=== PATIENT | female | born 1960 | race Caucasian/White ===

== ENCOUNTER 2024-05-31 16:59 | Observation (INO) | payer OTHER, SELFPAY ==
[2024-05-31 10:06] VITALS: BP 158/86
--- NOTE | 2024-05-31 10:42 | ED.GENMED ---
History of Present Illness
General
Chief Complaint: Back Pain
Source: patient
Exam Limitations: none
Time Seen by Provider: 05/31/24 10:20
Nursing documentation reviewed up to this point in time: agreed with
History of Present Illness
History of Present Illness:
63-year-old female with a history of hypertension, high cholesterol, [id number] diabetes presents for right sided back pain That radiates to her right flank which is very positional and worse with movement. She says just lying here
currently it is 9 out of 10 and is 10 out of 10 with movement. She has never had back pain like this before. She had no injuries. This has been going on a couple of days. She went to [place] yesterday and had labs and a urine and a CAT scan.
Her white count was normal at 6.4, her urine is small blood, small leuks, 6-10 whites, 6-10 reds, 16-20 epithelial cells and bacteria was present but negative nitrate, her chemistry panel was unremarkable. Her CAT scan was without contrast and
shows questionable mild thickening of the right lower quadrant small bowel loops which could be possibly enteritis, she had her cecum is in the left lower quadrant which she was aware of, she had an appendectomy which was left-sided years ago.
Patient does have a nonobstructing renal calculus in the left kidney measuring 6 mm.
She is not having any dysuria, urinary frequency or urgency, diarrhea, fever or chills. She is a little bit nauseous. She tried cyclobenzaprine 3 doses total without any improvement.
She feels that she cannot get comfortable. She called her family doctor and was instructed to come to this hospital instead.
Review of Systems
Review of Systems
Allergies reviewed?: Yes
All Other Systems: Not applicable
Phy Exam
Physical Exam
Physical Exam:
GENERAL: Alert, comfortable at rest
Neck: supple
CARDIAC: Regular rate and rhythm .
LUNGS: Clear breath sounds bilaterally, no acute respiratory distress, no wheezes/rales/rhonchi
ABDOMEN: Soft, normal bowel sounds, nondistended, mild right flank tenderness but mostly nontender, no guarding, no rebound, neg wheeler's
Back: No midline tenderness, slight right paraspinal muscle tenderness in the lower lumbar region just above her PSIS laterally on the right, she does have a negative straight leg raise but a lot of pain with changing positions including flexion of
her back
NEUROLOGICAL: Alert and oriented, no focal neuro deficits normal sensation in legs
SKIN: Warm and dry, skin intact.
PSYCH: Normal and appropriate interaction.
Course
Orders/Labs/Results
Orders:
Orders
05/31/24 10:40
0.9% Sodium Chloride 1000 ml [Nss] 1,000 ml IV BOLUS
HYDROmorphone [Dilaudid] 0.5 mg IV NOW STA
Ketorolac [Toradol] 15 mg IV NOW STA
05/31/24 11:22
Complete Blood Count/With Diff Urgent
Comprehensive Metabolic Panel Urgent
Glycohemoglobin (HgbA1c) Urgent
Lactic Acid Urgent
Lipase Urgent
05/31/24 11:46
CT Abd/Pel (IV only)-DH only Urgent
Comment:
Reason For Exam: R back pain to R flank
05/31/24 12:13
Urinalysis Reflex To Culture Urgent
Date Specimen was Collected: 05/31/24
Time Specimen was Collected: 12:03
Urine Microscopic Reflex Cult Urgent
Urine Culture Urgent
HUSAM Source: U
Specimen Description:
Date Specimen was Collected: 05/31/24
Time Specimen was Collected: 12:03
05/31/24 13:56
Dexamethasone Sod Phosphate [Decadron] 10 mg IV NOW STA
Hydrocodone 5/APAP 325 [[place] 5/325] 1 tablet PO NOW STA
Sulfamethox./Trimethoprim Ds [Bactrim Ds 800 mg/160 mg] 1 tablet PO NOW STA
05/31/24 Dinner
2000 calorie (17 carb) Diabetic
At Your Request: Full Participation
05/31/24 16:23
Admit/Transfer Patient As Directed
Co-Sign Provider:
Level of Care: Observation services
Assign to:: Medical/Surgical
Physician / Group: [place]
Diagnosis: Back Pain
05/31/24 16:28
Code Status As Directed
Resuscitation Status: Full Code
PRN Pain Medication Management As Directed
May give lesser potent ordered pain med per pt: Yes
preference::
Protocol:: Medication orders for pain may be administered in a
manner that supports deferring to patient preference
when the pt is:
- Requesting an ordered lesser potent pain medication.
Least to most potent pain medications are defined
as: acetaminophen < NSAID < tramadol < opioids
(morphine, oxycodone, hydromorphone).
- Requesting a lesser dose of the same medication IF
ORDERED.
- Requesting a less intrusive route of administration
if both routes are prescribed by the provider (PO <
IV).
05/31/24 18:05
Dextrose 50%-Water [Dextrose 50% Syringe] 12.5 grams IV [id number] PRN
Glucagon [GlucaGen] 1 mg IM PRN PRN
HYDROmorphone [Dilaudid] 0.25 mg IV Q3HPRN PRN
Insulin Aspart Corrective Low [Novolog Flexpen-Low Resistance] See Protocol SC AC
Ketorolac [Toradol] 10 mg IV Q6HPRN PRN
Methylsalicylate/Menthol [BenGay-Like] 1 applic TOPICAL QID
05/31/24 18:05
Activity As Directed
Activity Level: Out of Bed-Early Mobility
With Assistance
Bedside Glucose Monitoring As Directed
Frequency: AC&HS
Additional Instructions:: Change to q6h if pt on TPN, tube feeding or not eating
Pneumatic Compression Sleeves As Directed
Type: Knee high
Vital Signs As Directed
Frequency: Per unit guidelines
Ot Eval And Treat Routine
Pt Eval And Treat Routine
Activity Level: Out of Bed-Early Mobility
DX Deep Vein Thrombosis Video Routine
05/31/24 22:00
Acetaminophen [Tylenol] 1,000 mg PO TID
06/01/24 08:00
Atorvastatin [Lipitor] 10 mg PO DAILY
Losartan [Cozaar] 50 mg PO DAILY
Abnormal Lab Results
05/31/24 05/31/24
11:22 12:13
Immature Gran % 0.6 H %
(0-0.5)
Lymphocytes % 19.7 L %
(20.5-51.1)
Glucose 119 H mg/dl
(70-99)
Leukocyte Esterase Rfl 1+ A
(Negative)
Urine WBC (Reflex) 11-15 A /HPF
(0-5)
Urine Bacteria (Reflex) Few A
(Negative)
05/31/24 11:22
05/31/24 11:22
Vital Signs
Initial and Last Documented VS:
Initial Vital Signs
Temp Pulse Resp BP Pulse Ox
97.9 F 74 20 158/86 100
05/31/24 10:06 05/31/24 10:06 05/31/24 10:06 05/31/24 10:06 05/31/24 10:06
Last Documented Vital Signs
Temp Pulse Resp BP Pulse Ox
97.5 F 65 16 140/77 93
06/01/24 07:00 06/01/24 07:00 06/01/24 07:00 06/01/24 07:00 06/01/24 07:00
MDM/Problems Addressed
Differential Diagnosis Includes:
lumbar radiculopathy/msk back pain, kidney stone, early pyelo
MDM/Problems Addressed:
63 y/o F HTN ,HLD, NIDDM
2nd ed visit for R back pain to R flank, positional, no radicular symptoms, no weakness, no red flag symptoms, no rash, no urinary sypmtoms
w/u [facility] yesteray neg (contaminated urine not treated, i got the fax of all of these results and reviewed)
- had ct without contrast, ? mild enteritis but this is not clinically relevant.
her urine was contaminated and not treated but +
w/u here continues to show contaminated urine but neg ct W constrat was neg today -
mutiple reassessments
dilaudid, toradol, steroids, vicodin
pt is saying 9/10 pain
does not want to go home
does not feel she can take care of her self
aware this will be obs admission
covering with bactrim for urine
*Critical Care Note
Total Time (30-74mins, 75-104mins- exclusive of procedures): Not Applicable
ED Attending Note
-
Portions of this chart may have been created with voice recognition software.� Occasional wrong word or��sound alike� substitutions may have occurred due to the inherent limitations of voice recognition software.
Discharge Plan
Departure
Patient Disposition: Admit
Date of Disposition: 05/31/24
Time of Disposition: 15:57
Presentation/result/management discussed w/ accepting MD/DO: Hospitalist
Patient with high blood pressure during this ER visit?: Yes
Condition: Fair
Discharge Problem:
Back pain, UTI (urinary tract infection)
Interventions
Interventions:
*Risk Screen - Suicide Last Done: 05/31/24 11:49
*General Assessment Last Done: 05/31/24 11:49
*Neglect/Abuse Screening Last Done: 05/31/24 11:49
ED- Fall Risk Assessment Last Done: 05/31/24 11:49
*ED COVID-19 Vaccine History Last Done: 05/31/24 17:27
*Nursing Disposition Last Done: 05/31/24 18:11
ED-Musculoskeletal Assessment Last Done: 05/31/24 11:48
Discharge Date and Time
Discharge Date/Time: 05/31/24 18:11
[2024-05-31] MEDS: TORADOL 15 MG IV (11:17)
[2024-05-31] MEDS: DILAUDID 0.5 MG IV (11:18)
[2024-05-31] MEDS: NSS 1000 IV (11:19)
[2024-05-31 11:42] LABS: % Basophils 0.5 % (0-2); % Immature Granulocytes 0.6 % (0-0.5); % Lymphocytes 19.7 % (20.5-51.1); % Monocytes 5.7 % (1.7-9.3); % Neutrophils 70.5 % (42.2-75.2); Absolute Eosinophils 0.2 10^3/uL (0-0.7); Absolute Lymphocytes 1.3 10^3/uL (1.2-3.4); Absolute Monocytes 0.4 10^3/uL (0.1-0.6); Absolute Neutrophils 4.5 10^3/uL (1.4-6.5); Hematocrit 37.8 % (37.0-47.0); Hemoglobin 12.8 g/dL (12.0-16.0); Mean Corp Hgb Conc. 33.9 g/dL (33.0-37.0); Mean Corpuscular Hgb 29.9 pg (27.0-31.0); Mean Corpuscular Volume 88.3 fL (81.0-99.0); Mean Platelet Volume 10.2 fL (7.4-10.4); Nucleated Red Blood Cells % 0 %; Platelet Count 261 10^3/uL (130-400); Red Blood Cell Count 4.28 10^6/uL (4.20-5.40); White Blood Cell Count 6.4 10^3/uL (4.8-10.8)
[2024-05-31 11:54] LABS: Lactic Acid 1.1 mmol/L (0.7-2.0)
[2024-05-31 11:58] LABS: ALT (SGPT) 30 U/L (0-35); AST (SGOT) 28 U/L (14-36); Alkaline Phosphatase 61 U/L (38-126); Blood Urea Nitrogen 11 mg/dl (7-17); Calcium 9.3 mg/dl (8.4-10.2); Carbon Dioxide 25 mmol/L (22-30); Chloride 104 mmol/L (98-107); Glucose 119 mg/dl (70-99); Lipase 102 U/L (23-300); Potassium 4.2 mmol/L (3.5-5.1); Sodium 139 mmol/L (135-145); Total Bilirubin 0.8 mg/dl (0.2-1.3); Total Protein 6.4 g/dl (6.3-8.2); eGFR > 60.00
[2024-05-31 12:45] LABS: Urine Albumin Negative (Neg - Trace); Urine Bilirubin Negative (Negative); Urine Character Clear (Clear); Urine Color Yellow; Urine Glucose Negative (Negative); Urine Ketone Negative (Negative); Urine Leukocyte 1+ (Negative); Urine Nitrite Negative (Negative); Urine Occult Blood Negative (Negative); Urine Urobilinogen Negative (Neg - 1+)
[2024-05-31 13:00] VITALS: BP 141/78
[2024-05-31 13:08] LABS: Urine Red Blood Cell 0-2 /HPF (0-2); Urine Squamous Cell 16-20 /LPF (Few)
[2024-05-31 13:09] LABS: Urine Bacteria Few (Negative)
[2024-05-31] MEDS: NORCO 5/325 1 TABLET PO (14:00)
[2024-05-31] MEDS: BACTRIM DS 800 MG/160 MG 1 TABLET PO (14:00)
[2024-05-31] MEDS: DECADRON 10 MG IV (14:00)
[2024-05-31 14:19] VITALS: BP 148/84
--- NOTE | 2024-05-31 16:32 | HPS.HSE ---
Family Physician
-
Family Physician: Madalyn Ortiz
Chief Complaint
-
Back Pain
History of Present Illness
Patient is a 63 y/o female past medical history of hypertension, hyperlipidemia and diabetes mellitus who presents with back pain. Patient reports she got out of bed yesterday with severe right mid/lower back pain. She reports a constant pain with
a sharp stabbing sensation with movement. She denies any pain, numbness or tingling radiating down the leg. She denies any falls or overt injury but notes over the weekend they did close their pool and she was lift/puling a heavy tarp. She reports
some mild nausea due to severe pain, and notes diarrhea last week which has resolved. She denies fevers, sweats or chills. She denies dysuria or urinary frequency.
Medical History
Past Medical History
Past Medical History: Reports Other
Additional Past Medical History:
Diabetes Mellitus, Type II
Essential Hypertension
Hyperlipidemia
Past Surgical History: Reports Other
Additional Past Surgical History:
Foot Surgery
Shoulder Surgery
Carpal Tunnel
Appendectomy
Social History
Tobacco: Former Smoker (Quit about 15-20 years ago)
Alcohol: Occasional
Family History
Family History: Not pertinent
Allergies / Home Medications
Allergies reflects when Allergies were last updated in [facility].
Home Medications with original date entered in [facility]
Allergy/Medication List:
Allergies
Allergy/AdvReac Type Severity Reaction Status Date / Time
erythromycin base Allergy Unknown Unknown Verified 05/31/24 10:11
Penicillins Allergy Unknown Unknown Verified 05/31/24 10:11
Home Medications
atorvastatin 10 mg tablet 10 mg PO DAILY 05/31/24
carboxymethylcellulose sodium 1 % eye liquid gel drops 1 drp BOTH EYES BIDPRN PRN irritated eyes 05/31/24
cyclobenzaprine 10 mg tablet 10 mg PO TIDPRN PRN muscle spasms 05/31/24
losartan 50 mg tablet 50 mg PO DAILY 05/31/24
metformin 500 mg tablet,extended release 24 hr 1,000 mg PO BID 05/31/24
Review of Systems
-
A 12 point ROS was completed and negative except as noted: Yes
Constitutional: Denies Fever or Chills
Respiratory: Denies Cough or Trouble Breathing
Cardiac: Denies Chest Pain or Palpitations
Physical Exam
Vital Signs
Vital Signs
Temp Pulse Resp BP Pulse Ox
97.9 F 69 18 148/84 96
05/31/24 10:06 05/31/24 14:19 05/31/24 14:19 05/31/24 14:19 05/31/24 14:19
Physical Exam
General: Comfortable, Conversant and Pain (With movement)
HEENT: Anicteric and Moist mucous membranes
Respiratory: Clear and Non Labored Respirations
Cardiac: S1/S2 and Regular Rhythm
GI: Soft and Non Tender
Rectal: Deferred by Provider
Musculoskeletal: No Clubbing, No Cyanosis, No Edema and Other (Paraspinal muscle spasms with tenderness to palpation in the right lumbar region)
Skin: Warm and Dry
Neuro: Awake, Alert, Oriented and Nonfocal/grossly intact
Psych: Calm
Laboratory Results
-
05/31/24 11:22
05/31/24 11:22
Laboratory Results
Lactic Acid 1.1 mmol/L (0.7-2.0) 05/31/24 11:22
Total Bilirubin 0.8 mg/dl (0.2-1.3) 05/31/24 11:22
AST 28 U/L (14-36) 05/31/24 11:22
ALT 30 U/L (0-35) 05/31/24 11:22
Alkaline Phosphatase 61 U/L (38-126) 05/31/24 11:22
Lipase 102 U/L (23-300) 05/31/24 11:22
Data Reviewed
-
CT Scan: Report Reviewed by me
Lab Data: Labs Reviewed by me
Impression/Plan
-
Back Pain - Musculoskeletal
-Add topical menthol cream
-Add Tylenol 1000mg TID
-Use Toradol for moderate pain, and Dilaudid for severe pain
-Consult PT
Diabetes Mellitus, Type II
-Hold metformin following CT scan with IV dye
-Monitor sugars and continue coverage insulin
Essential Hypertension
-Continue losartan
Hyperlipidemia
-Continue atorvastatin
DVT proph: SCDs
Code Status: Full Code
--- NOTE | 2024-05-31 17:02 | W.PN.UPDATE ---
Update Note
Progress Note Update
This is an addendum to the H&P written by Pam Suazo. Patient seen and examined dependently with PA. 63-year-old female past medical history of hypertension, diabetes, hyperlipidemia presenting with right lower back/hip pain which started
yesterday after lifting heavy tarp to close her pool the day prior. Patient has right paraspinal tenderness likely muscle spasm. CT abdomen pelvis [place] yesterday showed enteritis. CT here today without oral contrast was negative.
Tylenol/Toradol, Beng[place] cream.
[2024-05-31 18:15] VITALS: BP 142/85
[2024-05-31 18:22] LABS: Glucose - Point of Care 138 mg/dl (70-99)
[2024-05-31] MEDS: BenGay-Like 1 APPLIC TOPICAL ×2 (18:27→21:41)
[2024-05-31 19:36] VITALS: BMI 35.4
[2024-05-31 21:24] LABS: Glucose - Point of Care 170 mg/dl (70-99)
[2024-05-31] MEDS: TYLENOL 1000 MG PO (21:41)
[2024-05-31 23:40] VITALS: BP 127/70
[2024-06-01 07:00] VITALS: BP 140/77
[2024-06-01] MEDS: LIPITOR 10 MG PO (07:51)
[2024-06-01] MEDS: TYLENOL 1000 MG PO (07:51)
[2024-06-01] MEDS: BenGay-Like 1 APPLIC TOPICAL ×2 (07:51→12:36)
[2024-06-01] MEDS: COZAAR 50 MG PO (07:51)
[2024-06-01 08:02] LABS: Glucose - Point of Care 116 mg/dl (70-99)
[2024-06-01 08:25] LABS: Glycohemoglobin (HgbA1c) 5.6 % (4.0-5.6)
[2024-06-01 09:43] VITALS: BP 118/72; PULSE 93
[2024-06-01 11:52] LABS: Glucose - Point of Care 109 mg/dl (70-99)
--- NOTE | 2024-06-01 11:52 | PTOTSP ---
pt currently requires no assistance to complete simple ADLs, functional transfers, ambulation. pt reports some awareness of back pain, though is still capable of completing functional tasks. no acute OT needs identified at this time, will sign off.
--- NOTE | 2024-06-01 12:56 | W.DS.TRANS ---
DC Summary - Recruiting Intern
-
Discharge Instructions:
Discharge Diagnosis/Procedures Severe back pain
Diet Diabetic, Carb Controlled
Instructions:
Stand-Alone Forms:
Changes to Home Medications: No
Discharge Medications:
DC Medications w/original date entered in [facility]
atorvastatin 10 mg tablet 10 mg PO DAILY High Cholesterol 05/31/24
carboxymethylcellulose sodium 1 % eye liquid gel drops 1 drp BOTH EYES BIDPRN PRN irritated eyes 05/31/24
cyclobenzaprine 10 mg tablet 10 mg PO TIDPRN PRN muscle spasms 05/31/24
losartan 50 mg tablet 50 mg PO DAILY Blood Pressure 05/31/24
metformin 500 mg tablet,extended release 24 hr 1,000 mg PO BID Diabetes 05/31/24
acetaminophen 500 mg tablet (Tylenol Extra Strength) 1,000 mg (2 x 500 mg) PO TID PRN Pain #60 tabs 06/01/24
methyl salicylate 15 %-menthol 10 % topical cream (Arthritis Hot Pain Relief) 1 applic topical QID #85 grams 06/01/24
Home Medication Changes
Pending Results: No
--- NOTE | 2024-06-01 14:48 | CM ---
Alert awake oriented patient who lives with her Joe in a 2 story home with 2 steps to enter and 13 steps to bed/bathroom. She is independent in activates of daily living.She does drive .She was given observation letter explained all
questions aware. Signed copy on chart.Offered VN she declined need.
No VN past . No SNF hx
Pharmacy [facility] [place]
PCP Dr Hernandez
PLAN Home no needs
[2024-06-02 20:44] LABS: Hepatitis C Antibody Negative (Negative)
== END 2024-06-01 16:46 | disposition home or self-care (01) ==
LOC: 3 WEST ACU 16:59
PROVIDERS: Physician Assistant; ADMITTING PHYSICIAN Hospitalist; ATTENDING PHYSICIAN Internal Medicine; EMERGENCY PHYSICIAN Emergency Medicine; FAMILY PHYSICIAN Internal Medicine
DX: M54.9 Dorsalgia, unspecified (principal); I10 Essential (primary) hypertension; E11.9 Type 2 diabetes mellitus without complications; E78.00 Pure hypercholesterolemia, unspecified; N20.0 Calculus of kidney; K76.0 Fatty (change of) liver, not elsewhere classified; N28.1 Cyst of kidney, acquired; N39.0 Urinary tract infection, site not specified; Z87.891 Personal history of nicotine dependence; Z88.1 Allergy status to other antibiotic agents; Z88.0 Allergy status to penicillin; Z79.84 Long term (current) use of oral hypoglycemic drugs
CPT/HCPCS: 74177; 80053; 81003; 81015; 82962; 83036; 83605; 83690; 85025; 86803; 87086; 96361; 96374; 96375; 97162; 97165; 99285; G0378; Q9967